=== PATIENT | female | born 1950 | race Caucasian/White ===

== ENCOUNTER 2018-09-08 09:34 | Outpatient (CLI) | payer MEDICARE ==
--- NOTE | 2018-09-08 10:29 | MMO ---
Bilateral MAMMO Bilat Screen [facility]. CLINICAL HISTORY: Patient is 68 years old and is seen for screening. The patient has the following family history of breast cancer: maternal aunt, at age 65. The patient has no personal history of cancer. The patient has a history of right Stereotatic Biopsy in 1998 - benign. VIEWS: The views performed were: bilateral craniocaudal with tomosynthesis and bilateral mediolateral oblique with tomosynthesis. FILMS COMPARED: The present examination has been compared to prior imaging studies performed at [facility] on 02/28/2013, 07/18/2015 and 08/18/2016, and at [facility] on 11/16/2011. MAMMOGRAM FINDINGS: There are scattered fibroglandular densities. There are stable benign appearing densities seen in the right breast. There are no suspicious masses, suspicious calcifications, or new areas of architectural distortion. IMPRESSION: THERE IS NO MAMMOGRAPHIC EVIDENCE OF MALIGNANCY. A ROUTINE FOLLOW-UP MAMMOGRAM IN 1 YEAR IS RECOMMENDED. THE RESULTS OF THIS EXAM WERE SENT TO THE PATIENT. ACR BI-RADS Category 2 - Benign finding MAMMOGRAPHY NOTE: 1. A negative mammogram report should not delay a biopsy if a dominant of clinically suspicious mass is present. 2. Approximately 10% to 15% of breast cancers are not detected by mammography. 3. Adenosis and dense breasts may obscure an underlying neoplasm.
--- NOTE | 2018-09-08 12:01 | BD ---
DEXA BONE MINERAL DENSITOMETRY EXAM, DENSITY EXAM: HISTORY: A 68-year-old postmenopausal female for screening. COMPARISON: None. FINDINGS: Lumbar Spine: BMD (g/cm2) L1 1.222 T-Score: 2.1 L2 1.290 T-Score: 2.4 L3 1.348 T-Score: 2.4 L4 1.168 T-Score: 1.0 L1-L4 1.256 T-Score: 1.9 Femoral Neck: 0.738 T-Score: -1.0 Total Femur: 1.015 T-Score: 0.6 Impression: Normal bone mineral density. POS: [facility]
--- NOTE | 2018-09-08 12:20 | ULT ---
US Thyroid STANDARD: 09/08/2018 12:00 AM CLINICAL INDICATION: Thyroid nodule. COMPARISON: None. FINDINGS: The right thyroid lobe measures 4.5 and the left thyroid lobe measures 5.1. There is a predominantly cystic nodule in the left thyroid lobe measuring 3.9 cm in greatest dimensio n. 2 small solid nodules are seen in the right thyroid lobe. The largest measures 1.4 cm in greatest dimension and is wider than tall without suspicious calcifications. No cervical lymphadenopathy is noted. IMPRESSION: Multinodular thyroid. The most suspicious nodule is the larger nodule in the right thyroid lobe. TIRADS category 4-a follow-up ultrasound of the thyroid is recommended at one year, 2 years, 3 years, and 5 years.
== END 2018-09-08 09:35 | disposition home or self-care (01) ==
LOC: BICMAMMO 09:34
PROVIDERS: ATTEND Internal Medicine
DX: Z12.31 Encounter for screening mammogram for malignant neoplasm of breast (principal); Z13.820 Encounter for screening for osteoporosis; E04.2 Nontoxic multinodular goiter; Z80.3 Family history of malignant neoplasm of breast
CPT/HCPCS: 76536; 77063; 77067; 77080

== ENCOUNTER 2018-09-28 12:30 | Day surgery (SDC) | payer MEDICARE ==
[2018-09-27 12:40] VITALS: BMI 32.1
[2018-09-28] MEDS ORDERED: Sodium Bicarbonate 2.5 MEQ/5 ML VIAL ONE (12:41)
[2018-09-28] MEDS ORDERED: Lidocaine 1% PF 5 ML VIAL ONE (12:41)
[2018-09-28 14:28] VITALS: BP 148/68; TEMP 98.2
--- NOTE | 2018-09-28 15:55 | ULT ---
ULTRASOUND GUIDED FINE NEEDLE ASPIRATION: 09/28/18 HISTORY: Complex nodule in the left thyroid lobe. COMPARISON: 09/08/18. FINDINGS: Successful fine needle aspiration of a complex predominantly cystic nodule in the left thyroid lobe. A total of four 25 gauge fine needle aspirations were performed. TECHNIQUE: Consent obtained to perform an ultrasound guided fine needle aspiration of a complex predominantly cy stic nodule in the left thyroid lobe. Left neck was prepped and draped in a sterile fashion. 1% lidoc ollie, buffered with sodium bicarbonate used for local anesthesia. Under ultrasound guidance, 25 gauge fine needle aspiration was performed four times. There were no immediate or postprocedure complicati ons. IMPRESSION: Successful fine needle aspiration with ultrasound guidance. POS: OFF
== END 2018-09-28 14:00 | disposition home or self-care (01) ==
LOC: ULT 12:30
PROVIDERS: ATTEND Internal Medicine
DX: E04.1 Nontoxic single thyroid nodule (principal); I10 Essential (primary) hypertension; E78.5 Hyperlipidemia, unspecified; F41.9 Anxiety disorder, unspecified; H26.9 Unspecified cataract; K21.9 Gastro-esophageal reflux disease without esophagitis; M19.90 Unspecified osteoarthritis, unspecified site; M10.9 Gout, unspecified; Z79.899 Other long term (current) drug therapy; Z87.891 Personal history of nicotine dependence; Z88.0 Allergy status to penicillin; Z88.2 Allergy status to sulfonamides; Z88.8 Allergy status to other drugs, medicaments and biological substances
CPT/HCPCS: 60100; 76942; 88173; 88305; J2001

== ENCOUNTER 2020-02-15 11:04 | Outpatient (CLI) | payer MEDICARE ==
--- NOTE | 2020-02-15 11:31 | MMO ---
Bilateral MAMMO Bilat Screen [facility]. CLINICAL HISTORY: Patient is 69 years old and is seen for screening. The patient has the following family history of breast cancer: maternal aunt, at age 65. The patient has no personal history of cancer. The patient has a history of right Stereotatic Biopsy in 1998 - benign. VIEWS: The views performed were: bilateral craniocaudal with tomosynthesis and bilateral mediolateral oblique with tomosynthesis. FILMS COMPARED: The present examination has been compared to prior imaging studies performed at [facility] on 02/28/2013, 07/18/2015, 08/18/2016 and 09/08/2018. This study has been interpreted with the assistance of computer-aided detection. MAMMOGRAM FINDINGS: There are scattered fibroglandular densities. Nodularity is stable. There are no suspicious masses, suspicious calcifications, or new areas of architectural distortion. IMPRESSION: THERE IS NO MAMMOGRAPHIC EVIDENCE OF MALIGNANCY. A ROUTINE FOLLOW-UP MAMMOGRAM IN 1 YEAR IS RECOMMENDED. THE RESULTS OF THIS EXAM WERE SENT TO THE PATIENT. ACR BI-RADS Category 2 - Benign finding MAMMOGRAPHY NOTE: 1. A negative mammogram report should not delay a biopsy if a dominant of clinically suspicious mass is present. 2. Approximately 10% to 15% of breast cancers are not detected by mammography. 3. Adenosis and dense breasts may obscure an underlying neoplasm. Reported by: THAO FRANKLIN MD Electonically Signed: [id number]
--- NOTE | 2020-02-15 12:21 | ULT ---
Thyroid ultrasound: 02/15/2020 COMPARISON: 09/08/2018 HISTORY: Reevaluate thyroid nodules TECHNIQUE: Multiplanar grayscale sonographic imaging of the thyroid gland obtained. FINDINGS: The thyroid isthmus measures 5 mm in AP dimension, the left lobe measures 4.6 x 3.4 x 3.2 c m, in the right lobe measures 3.9 x 1.2 x 1.5 cm. There is a cystic macrolobulated nodule within the superior aspect of the right lobe measuring 1.1 x 1.0 x 0.8 cm, enlarged when compared to the prior examination but demonstrating a more cystic appearance than on the prior study. There is a solid oval hypoechoic lesion within the inferior aspec t of the right lobe measuring approximately 1.4 x 0.7 x 1.5 cm, not significantly changed when compared to the prior study at which time it measured approximately 1.4 x 0.7 x 1.4 cm. No new thyroi d nodules are noted on the right. There is a large cystic nodule within the left lobe of the thyroid gland measuring approximately 3.7 x 2.9 x 3.2 cm. This large cystic nodule measured 3.9 x 2.6 x 3.1 cm on the prior examination and underwent ultrasound-guided sampling on 09/28/2018. No new thyroid nodules are seen. IMPRESSION: Stable thyroid nodules as detailed above. TIRADS category 4. Recommend follow-up ultraso und in one year.
== END 2020-02-15 11:05 | disposition home or self-care (01) ==
LOC: BICMAMMO 11:04
PROVIDERS: ATTEND Internal Medicine
DX: Z12.31 Encounter for screening mammogram for malignant neoplasm of breast (principal); E04.2 Nontoxic multinodular goiter
CPT/HCPCS: 76536; 77063; 77067

== ENCOUNTER 2021-02-20 10:44 | Outpatient (CLI) | payer MEDICARE | END 2021-02-20 10:45 | disposition home or self-care (01) | LOC: BICULT 10:44 | PROVIDERS: ATTEND Internal Medicine | DX: Z12.31 Encounter for screening mammogram for malignant neoplasm of breast (principal); E04.1 Nontoxic single thyroid nodule; E03.8 Other specified hypothyroidism; Z80.3 Family history of malignant neoplasm of breast; Z91.89 Other specified personal risk factors, not elsewhere classified | CPT/HCPCS: 76536; 77063; 77067 ==

== ENCOUNTER 2022-03-12 11:50 | Outpatient (CLI) | payer OTHER | END 2022-03-12 11:51 | disposition home or self-care (01) | LOC: BICULT 11:50 | PROVIDERS: ATTEND Internal Medicine | DX: E04.2 Nontoxic multinodular goiter (principal) | CPT/HCPCS: 76536 ==

== ENCOUNTER 2022-03-12 11:56 | Outpatient (CLI) | payer MEDICARE | END 2022-03-12 11:57 | disposition home or self-care (01) | LOC: BICMAMMO 11:56 | PROVIDERS: ATTEND Internal Medicine | DX: Z12.31 Encounter for screening mammogram for malignant neoplasm of breast (principal); Z80.3 Family history of malignant neoplasm of breast; Z91.89 Other specified personal risk factors, not elsewhere classified | CPT/HCPCS: 77063; 77067 ==

== ENCOUNTER → 2022-04-22 | Day surgery (SDC) | payer MEDICARE ==
[2022-04-21 13:43] VITALS: BMI 30.7
[~2022-04-22] MED LIST: Lidocaine 1% PF 5 ML VIAL ONE; Sodium Bicarbonate 2.5 MEQ/5 ML VIAL ONE
[2022-04-22 14:01] VITALS: BP 150/86
== END | disposition home or self-care (01) ==
LOC: ULT 12:21
PROVIDERS: ATTEND Internal Medicine
PROC: 0G9H3ZX Drainage of Right Thyroid Gland Lobe, Percutaneous Approach, Diagnostic (ICD-10-PCS; principal; 2022-04-22)
DX: E04.1 Nontoxic single thyroid nodule (principal); Z79.1 Long term (current) use of non-steroidal anti-inflammatories (NSAID); Z79.899 Other long term (current) drug therapy; Z88.0 Allergy status to penicillin; Z88.2 Allergy status to sulfonamides
CPT/HCPCS: 10005; 88173; 88305

== ENCOUNTER 2023-03-23 14:08 | Outpatient (CLI) | payer MEDICARE | END 2023-03-23 14:09 | disposition home or self-care (01) | LOC: BICULT 14:08 | PROVIDERS: ATTEND Internal Medicine | DX: E04.1 Nontoxic single thyroid nodule (principal) | CPT/HCPCS: 76536 ==

== ENCOUNTER 2024-03-28 11:02 | Outpatient (CLI) | payer MEDICARE | END 2024-03-28 11:03 | disposition home or self-care (01) | LOC: BICULT 11:02 | PROVIDERS: ATTEND Internal Medicine | DX: E04.2 Nontoxic multinodular goiter (principal) | CPT/HCPCS: 76536 ==